=== PATIENT | male | born 1955 | race Caucasian/White ===

== ENCOUNTER 2021-09-11 04:09 | Inpatient (IN) | payer MEDICARE, MEDICAID ==
[~2021-09-11] VITALS: Ht 152.4 cm; Wt 87.0 kg
[~2021-09-11 04:09] MED LIST: ALBU2.5V12 NEB; ASCO-134 PO; BUDE0.5A11 NEB; CALC500T11 PO; CHOL100017 PO; DOCU-361 PO; FERR325T32 PO; FLUT16SP26 NAS; FOLI0.4T14 PO; FURO40TA4 PO; LEVO150T8 PO; LEVO750T46 PO; MONT-40 PO; MULT-227 PO; OXYB5TAB16 PO; PANT40TA54 PO; POLY17PO10 PO; ROBDML PO; SERT-434 PO; SODI1TAB2 PO
[2021-09-11 05:13] LABS: ALANINE AMINOTRANSFERASE 26 U/L (12-78); ALBUMIN/GLOBULIN RATIO 0.5 (1.1-1.5); ALKALINE PHOSPHATASE 62 IU/L (46-116); ANION GAP 5 (8-16); ASPARTATE AMINO TRANSFERASE 20 U/L (10-37); BILIRUBIN,TOTAL 0.3 MG/DL (0.1-1.0); BLOOD UREA NITROGEN 30 MG/DL (7-18); BUN/CREATININE RATIO 47.6 (5.4-32.0); CALCIUM 8.6 MG/DL (8.5-10.1); CHLORIDE 104 MMOL/L (99-107); CREATININE 0.63 MG/DL (0.60-1.10); GLUCOSE 102 MG/DL (70-104); SODIUM 139 MMOL/L (135-145); TOTAL CARBON DIOXIDE 30.1 MMOL/L (24-32); eGFR > 90 ML/MIN
[2021-09-11 05:17] LABS: POTASSIUM 4.6 MMOL/L (3.5-5.1)
[2021-09-11 05:39] LABS: BASOPHILS # (AUTO) 0.1 X10'3 (0-0.2); BASOPHILS % (AUTO) 1.1 % (0-1); EOSINOPHILS # (AUTO) 0.4 X10'3 (0-0.9); EOSINOPHILS % (AUTO) 3.4 % (0-6); HEMATOCRIT 43.5 % (42.0-52.0); LYMPHOCYTES # (AUTO) 2.2 X10'3 (1.1-4.8); LYMPHOCYTES % (AUTO) 19.1 % (21-51); MEAN CORPUSCULAR HEMOGLOBIN 31.3 PG (27.0-31.0); MEAN CORPUSCULAR HGB CONC 32.2 g/dL (33.0-36.5); MEAN CORPUSCULAR VOLUME 97.1 FL (78-98); MEAN PLATELET VOLUME 6.5 FL (7.4-10.4); MONOCYTES # (AUTO) 0.9 X10'3 (0-0.9); MONOCYTES % (AUTO) 7.9 % (2-12); NEUTROPHILS # (AUTO) 7.9 X10'3 (1.8-7.7); NEUTROPHILS % (AUTO) 68.5 % (42-75); PLATELET COUNT 421 X10'3 (140-440); RED BLOOD COUNT 4.48 X10'6 (4.70-6.10); RED CELL DISTRIBUTION WIDTH 16.6 % (11.5-14.5); WHITE BLOOD COUNT 11.6 X10'3 (4.5-11.0)
[2021-09-11 06:18] LABS: NUCLEATED RED BLOOD CELLS 2 /100WBC (0-0); TOTAL CELLS COUNTED 100
[2021-09-11 06:19] LABS: ANISOCYTOSIS 1+; HYPERSEGMENTED NEUTROPHILS 1+; PLATELET ESTIMATE NORMAL; POLYCHROMASIA FEW
[2021-09-11] MEDS ORDERED: vancomycin/NS 1 GM ADD-VANTAGE 250 ML IV ONE ×2 (06:20→08:15)
[2021-09-11] MEDS ORDERED: cefepime 1GM in D5W 50mL 100 ML IV ONE (06:22)
[2021-09-11] MEDS ORDERED: LEVO750T46 PO (06:37)
[2021-09-11] MEDS ORDERED: magnesium 2GM in 50ml NS 50 ML IV PRN (07:35)
[2021-09-11] MEDS: normal saline 1000ml 1,000 ML IV SCH (07:35)
[2021-09-11] MEDS ORDERED: magnesium Cl slow-release 64mg tablet PO PRN (07:35)
[2021-09-11] MEDS ORDERED: ipratropium/albuterol 3ml nebule NEB PRN ×2 (07:35)
[2021-09-11] MEDS ORDERED: acetaminophen 325mg tablet PO PRN (07:35)
[2021-09-11] MEDS ORDERED: magnesium 4gm in 100ml NS 100 ML IV PRN (07:35)
[2021-09-11] MEDS ORDERED: potassium Cl 20 mEq SR tablet PO PRN ×2 (07:35)
[2021-09-11] MEDS ORDERED: potassium CL 10mEq/100ml bag 100 ML IV PRN (07:35)
[2021-09-11] MEDS: levoFLOXACIN-Levaquin 500mg/D5 100 ML IV SCH (08:00)
[2021-09-11] MEDS: K and/or MAG REPLACEMENT MC SCH ×2 (08:00→20:00)
[2021-09-11 09:22] LABS: MAGNESIUM 2.1 MG/DL (1.5-2.4)
--- NOTE | 2021-09-11 10:46 | NUR ---
[place] [phone] Admin (Ella) [phone] need to be notified when patient assigned to admit room
[2021-09-11 12:59] LABS: MAGNESIUM 1.9 MG/DL (1.5-2.4); POTASSIUM 4.2 MMOL/L (3.5-5.1)
[2021-09-11] MEDS: vancomycin/NS 1 GM ADD-VANTAGE 250 ML IV SCH (21:22)
[2021-09-11] MEDS: lactobacillus rhamnosus 10,000 MMU CELLS/CAPSULE PO SCH (21:27)
[2021-09-12 07:05] VITALS: BP 116/47
[2021-09-12] MEDS: K and/or MAG REPLACEMENT MC SCH ×2 (08:00→20:00)
[2021-09-12 08:01] LABS: BASOPHILS # (AUTO) 0.1 X10'3 (0-0.2); BASOPHILS % (AUTO) 1.1 % (0-1); EOSINOPHILS # (AUTO) 0.3 X10'3 (0-0.9); HEMATOCRIT 42.2 % (42.0-52.0); HEMOGLOBIN 13.9 g/dl (14.0-17.9); LYMPHOCYTES # (AUTO) 1.7 X10'3 (1.1-4.8); LYMPHOCYTES % (AUTO) 14.8 % (21-51); MEAN CORPUSCULAR HEMOGLOBIN 32.2 PG (27.0-31.0); MEAN CORPUSCULAR HGB CONC 32.9 g/dL (33.0-36.5); MEAN PLATELET VOLUME 6.4 FL (7.4-10.4); MONOCYTES # (AUTO) 0.6 X10'3 (0-0.9); MONOCYTES % (AUTO) 5.4 % (2-12); NEUTROPHILS # (AUTO) 8.7 X10'3 (1.8-7.7); NEUTROPHILS % (AUTO) 75.7 % (42-75); PLATELET COUNT 381 X10'3 (140-440); RED BLOOD COUNT 4.31 X10'6 (4.70-6.10); RED CELL DISTRIBUTION WIDTH 16.5 % (11.5-14.5); WHITE BLOOD COUNT 11.5 X10'3 (4.5-11.0)
[2021-09-12 08:06] LABS: ANION GAP 4 (8-16); BLOOD UREA NITROGEN 29 MG/DL (7-18); CALCIUM 8.7 MG/DL (8.5-10.1); CHLORIDE 106 MMOL/L (99-107); CREATININE 0.58 MG/DL (0.60-1.10); GLUCOSE 100 MG/DL (70-104); MAGNESIUM 2.2 MG/DL (1.5-2.4); POTASSIUM 4.8 MMOL/L (3.5-5.1); SODIUM 140 MMOL/L (135-145); TOTAL CARBON DIOXIDE 30.3 MMOL/L (24-32); eGFR > 90 ML/MIN
[2021-09-12] MEDS: levoFLOXACIN-Levaquin 500mg/D5 100 ML IV SCH (09:38)
[2021-09-12] MEDS: lactobacillus rhamnosus 10,000 MMU CELLS/CAPSULE PO SCH ×2 (09:39→20:35)
[2021-09-12] MEDS: polyethylene glycol 3350 17gm powd pack PO SCH (09:40)
[2021-09-12] MEDS: normal saline 1000ml 1,000 ML IV SCH (09:40)
[2021-09-12] MEDS ORDERED: budesonide 0.5mg/2ml UD nebule IH PRN (09:40)
[2021-09-12] MEDS: pantoprazole 40mg Tablet.DR PO SCH (09:40)
[2021-09-12] MEDS: vancomycin/NS 1 GM ADD-VANTAGE 250 ML IV SCH (13:31)
[2021-09-12] MEDS: sodium chloride 1gm tablet PO SCH ×2 (13:33→20:10)
[2021-09-12 15:00] VITALS: BP 111/56
[2021-09-12 18:00] VITALS: BP 116/68
--- NOTE | 2021-09-12 18:15 | NUR ---
Patient in room PCU 3016. I have received report from BEN Tovar, and had the opportunity to ask questions and assume patient care.Pt. had 8am dose for Vanco at 1:31pm, will inform Pharmacy, about level due at 1930, and next dose of Vanco scheduled for 1999.
--- NOTE | 2021-09-12 18:45 | NUR ---
Problems reprioritized. Patient report given, questions answered & plan of care reviewed with BEN Amezcua.
--- NOTE | 2021-09-12 19:12 | NUR ---
[place] [address], last Vanco dose given at 1.30p, Donell in pharmacy informed, will reschedule next dose for 013, and re order level for another time.
[2021-09-12] MEDS ORDERED: VANCOMYCIN LEVEL IV ONE (19:30)
[2021-09-12] MEDS: ferrous sulfate 325mg tablet PO SCH (20:10)
[2021-09-12] MEDS: docusate sod 250mg capsule PO SCH (20:10)
[2021-09-12] MEDS: cholecalciferol (vitamin D3) 1,000 unit (25mcg) tablet PO SCH (20:10)
[2021-09-12] MEDS: calcium carbonate 500mg tablet PO SCH (20:10)
[2021-09-12] MEDS: ascorbic acid 500mg tablet PO SCH (20:10)
[2021-09-12] MEDS: oxybutynin 5mg tablet PO SCH (20:35)
[2021-09-12] MEDS: fluticasone nasal spray 16GM bottle NS SCH (20:36)
[2021-09-12 22:00] VITALS: BP 114/68
[2021-09-13 02:00] VITALS: BP 123/56
[2021-09-13] MEDS: vancomycin/NS 1 GM ADD-VANTAGE 250 ML IV SCH ×2 (02:20→13:15)
--- NOTE | 2021-09-13 03:33 | NUR ---
PAGER ID: [phone] MESSAGE: re-Room [id number]-Daiana Gonzalez Pt requesting Cough medicine.
--- NOTE | 2021-09-13 06:28 | NUR ---
Patient in room PCU 3016. I have received report from BEN Amezcua and had the opportunity to ask questions and assume patient care.
--- NOTE | 2021-09-13 06:34 | NUR ---
Problems reprioritized. Patient report given, questions answered & plan of care reviewed with BEN Vega. Pt for IR procedure today.
[2021-09-13 06:57] VITALS: BP 103/57
[2021-09-13 07:34] LABS: ANION GAP 6 (8-16); BLOOD UREA NITROGEN 27 MG/DL (7-18); BUN/CREATININE RATIO 55.1 (5.4-32.0); CALCIUM 8.5 MG/DL (8.5-10.1); CHLORIDE 106 MMOL/L (99-107); CREATININE 0.49 MG/DL (0.60-1.10); GLUCOSE 99 MG/DL (70-104); MAGNESIUM 2.2 MG/DL (1.5-2.4); POTASSIUM 4.4 MMOL/L (3.5-5.1); SODIUM 140 MMOL/L (135-145); TOTAL CARBON DIOXIDE 28.1 MMOL/L (24-32); eGFR > 90 ML/MIN
[2021-09-13] MEDS: polyethylene glycol 3350 17gm powd pack PO SCH (07:47)
[2021-09-13] MEDS: levoFLOXACIN-Levaquin 500mg/D5 100 ML IV SCH (07:47)
[2021-09-13] MEDS: oxybutynin 5mg tablet PO SCH ×2 (07:48→19:37)
[2021-09-13] MEDS: ferrous sulfate 325mg tablet PO SCH ×2 (07:48→19:37)
[2021-09-13] MEDS: ascorbic acid 500mg tablet PO SCH ×2 (07:48→19:37)
[2021-09-13] MEDS: calcium carbonate 500mg tablet PO SCH ×2 (07:48→19:37)
[2021-09-13] MEDS: docusate sod 250mg capsule PO SCH ×2 (07:48→19:37)
[2021-09-13] MEDS: lactobacillus rhamnosus 10,000 MMU CELLS/CAPSULE PO SCH ×2 (07:48→19:36)
[2021-09-13] MEDS: sertraline 50mg tablet PO SCH (07:48)
[2021-09-13] MEDS: multivitamins, therapeutics tablet PO SCH (07:48)
[2021-09-13] MEDS: folic acid 1mg tablet PO SCH (07:48)
[2021-09-13] MEDS: montelukast 10mg tablet PO SCH (07:48)
[2021-09-13] MEDS: sodium chloride 1gm tablet PO SCH ×3 (07:48→20:47)
[2021-09-13] MEDS: pantoprazole 40mg Tablet.DR PO SCH (07:48)
[2021-09-13] MEDS: levoTHYROXINE 75mcg tablet PO SCH (07:48)
[2021-09-13] MEDS: cholecalciferol (vitamin D3) 1,000 unit (25mcg) tablet PO SCH ×2 (07:48→19:37)
[2021-09-13] MEDS: fluticasone nasal spray 16GM bottle NS SCH ×2 (07:49→19:47)
[2021-09-13] MEDS: K and/or MAG REPLACEMENT MC SCH ×2 (08:00→20:00)
[2021-09-13] MEDS ORDERED: folic acid 0.4mg tablet PO SCH (08:00)
--- NOTE | 2021-09-13 10:52 | NUR ---
Angio states patient does not have enough fluids for thoracentesis.
[2021-09-13 11:26] VITALS: BP 124/85
[2021-09-13] MEDS ORDERED: VANCOMYCIN LEVEL IV ONE (13:00)
[2021-09-13 13:28] LABS: BASOPHILS # (AUTO) 0.1 X10'3 (0-0.2); BASOPHILS % (AUTO) 0.7 % (0-1); EOSINOPHILS # (AUTO) 0.3 X10'3 (0-0.9); EOSINOPHILS % (AUTO) 1.7 % (0-6); HEMATOCRIT 42.1 % (42.0-52.0); LYMPHOCYTES # (AUTO) 1.2 X10'3 (1.1-4.8); LYMPHOCYTES % (AUTO) 8.1 % (21-51); MEAN CORPUSCULAR HGB CONC 33.1 g/dL (33.0-36.5); MEAN CORPUSCULAR VOLUME 96.5 FL (78-98); MEAN PLATELET VOLUME 6.3 FL (7.4-10.4); MONOCYTES # (AUTO) 0.6 X10'3 (0-0.9); MONOCYTES % (AUTO) 3.9 % (2-12); NEUTROPHILS # (AUTO) 13.1 X10'3 (1.8-7.7); NEUTROPHILS % (AUTO) 85.6 % (42-75); PLATELET COUNT 417 X10'3 (140-440); RED BLOOD COUNT 4.37 X10'6 (4.70-6.10); RED CELL DISTRIBUTION WIDTH 16.5 % (11.5-14.5); WHITE BLOOD COUNT 15.3 X10'3 (4.5-11.0)
[2021-09-13 15:40] VITALS: BP 108/60
--- NOTE | 2021-09-13 15:49 | NUR ---
PAGER ID: [phone] MESSAGE: [id number]- Han Gonzalez- pt IV infiltrated while 1300 dose of vanco was infusing. Pt received approx. half of bag. Attempted x2 IV start but unable to, pt very edematous. No PICC RN today to assist. Thank you- Silvia [phone]
--- NOTE | 2021-09-13 15:58 | NUR ---
Attempted to get assistance in starting new IV for patient however PICC RN not available today. Called down to ER to ask for assistance. [facility] stated "they've been swamped but will try to have someone assist."
--- NOTE | 2021-09-13 17:16 | NUR ---
Pt. in recliner reading magazines and wanting to stay in recliner for dinner.
[2021-09-13 18:00] VITALS: BP 134/79
--- NOTE | 2021-09-13 18:23 | NUR ---
Problems reprioritized. Patient report given, questions answered & plan of care reviewed with BEN Darnell.
--- NOTE | 2021-09-13 19:00 | NUR ---
Pt sitting in chair awake alert and oriented transferred to bed with total assistance. PM care done , wick in place for voiding. positive bowel movement noted;skin care done.
[2021-09-13] MEDS: furosemide 40mg/4ml inj IV SCH (19:37)
[2021-09-13 22:00] VITALS: BP 125/54
[2021-09-14] MEDS: vancomycin/NS 1 GM ADD-VANTAGE 250 ML IV SCH ×2 (01:08→12:46)
[2021-09-14 02:00] VITALS: BP 133/69
[2021-09-14 06:00] VITALS: BP 135/68
[2021-09-14 07:23] LABS: BASOPHILS # (AUTO) 0.1 X10'3 (0-0.2); BASOPHILS % (AUTO) 0.5 % (0-1); EOSINOPHILS # (AUTO) 0.3 X10'3 (0-0.9); EOSINOPHILS % (AUTO) 2.9 % (0-6); LYMPHOCYTES # (AUTO) 1.4 X10'3 (1.1-4.8); LYMPHOCYTES % (AUTO) 11.5 % (21-51); MEAN CORPUSCULAR HEMOGLOBIN 31.7 PG (27.0-31.0); MEAN CORPUSCULAR HGB CONC 32.4 g/dL (33.0-36.5); MEAN CORPUSCULAR VOLUME 97.7 FL (78-98); MEAN PLATELET VOLUME 6.6 FL (7.4-10.4); MONOCYTES # (AUTO) 0.8 X10'3 (0-0.9); MONOCYTES % (AUTO) 6.3 % (2-12); NEUTROPHILS # (AUTO) 9.4 X10'3 (1.8-7.7); NEUTROPHILS % (AUTO) 78.8 % (42-75); PLATELET COUNT 427 X10'3 (140-440); RED BLOOD COUNT 3.79 X10'6 (4.70-6.10); RED CELL DISTRIBUTION WIDTH 16.7 % (11.5-14.5); WHITE BLOOD COUNT 11.9 X10'3 (4.5-11.0)
[2021-09-14 07:30] LABS: ALBUMIN 1.8 G/DL (3.4-5.0); ANION GAP 6 (8-16); BLOOD UREA NITROGEN 27 MG/DL (7-18); CALCIUM 8.2 MG/DL (8.5-10.1); CHLORIDE 106 MMOL/L (99-107); CREATININE 0.73 MG/DL (0.60-1.10); GLUCOSE 91 MG/DL (70-104); MAGNESIUM 2.2 MG/DL (1.5-2.4); POTASSIUM 4.6 MMOL/L (3.5-5.1); SODIUM 141 MMOL/L (135-145); TOTAL CARBON DIOXIDE 28.8 MMOL/L (24-32); eGFR > 90 ML/MIN
[2021-09-14] MEDS: K and/or MAG REPLACEMENT MC SCH ×2 (08:00→19:27)
[2021-09-14] MEDS: polyethylene glycol 3350 17gm powd pack PO SCH (08:02)
[2021-09-14] MEDS: levoFLOXACIN-Levaquin 500mg/D5 100 ML IV SCH (08:02)
[2021-09-14] MEDS: levoTHYROXINE 75mcg tablet PO SCH (08:03)
[2021-09-14] MEDS: cholecalciferol (vitamin D3) 1,000 unit (25mcg) tablet PO SCH ×2 (08:03→20:55)
[2021-09-14] MEDS: calcium carbonate 500mg tablet PO SCH ×2 (08:03→20:49)
[2021-09-14] MEDS: lactobacillus rhamnosus 10,000 MMU CELLS/CAPSULE PO SCH ×2 (08:03→20:49)
[2021-09-14] MEDS: multivitamins, therapeutics tablet PO SCH (08:03)
[2021-09-14] MEDS: sodium chloride 1gm tablet PO SCH ×3 (08:03→20:49)
[2021-09-14] MEDS: docusate sod 250mg capsule PO SCH ×2 (08:04→20:49)
[2021-09-14] MEDS: ascorbic acid 500mg tablet PO SCH ×2 (08:04→20:49)
[2021-09-14] MEDS: folic acid 1mg tablet PO SCH (08:04)
[2021-09-14] MEDS: sertraline 50mg tablet PO SCH (08:04)
[2021-09-14] MEDS: montelukast 10mg tablet PO SCH (08:04)
[2021-09-14] MEDS: pantoprazole 40mg Tablet.DR PO SCH (08:04)
[2021-09-14] MEDS: furosemide 40mg/4ml inj IV SCH ×2 (08:05→20:49)
[2021-09-14] MEDS: oxybutynin 5mg tablet PO SCH ×2 (08:05→20:49)
[2021-09-14] MEDS: ferrous sulfate 325mg tablet PO SCH ×2 (08:05→20:49)
[2021-09-14 11:00] VITALS: BP 106/69
[2021-09-14 15:00] VITALS: BP 110/69
[2021-09-14] MEDS ORDERED: albumin (human) 25% 100 ML IV solution IV ONE (15:25)
[2021-09-14 18:00] VITALS: BP 107/63
[2021-09-14] MEDS: fluticasone nasal spray 16GM bottle NS SCH (20:52)
[2021-09-14 22:00] VITALS: BP 121/71
[2021-09-15] MEDS: vancomycin/NS 1 GM ADD-VANTAGE 250 ML IV SCH ×2 (01:46→13:30)
[2021-09-15 02:00] VITALS: BP 103/60
[2021-09-15 06:00] VITALS: BP 114/53
[2021-09-15] MEDS: normal saline 1000ml 1,000 ML IV SCH (06:10)
[2021-09-15 06:23] LABS: BASOPHILS # (AUTO) 0.1 X10'3 (0-0.2); BASOPHILS % (AUTO) 0.5 % (0-1); EOSINOPHILS # (AUTO) 0.3 X10'3 (0-0.9); EOSINOPHILS % (AUTO) 3.3 % (0-6); HEMATOCRIT 33.3 % (42.0-52.0); HEMOGLOBIN 11.1 g/dl (14.0-17.9); LYMPHOCYTES # (AUTO) 1.3 X10'3 (1.1-4.8); LYMPHOCYTES % (AUTO) 13.6 % (21-51); MEAN CORPUSCULAR HEMOGLOBIN 32.5 PG (27.0-31.0); MEAN CORPUSCULAR HGB CONC 33.3 g/dL (33.0-36.5); MEAN CORPUSCULAR VOLUME 97.6 FL (78-98); MEAN PLATELET VOLUME 6.3 FL (7.4-10.4); MONOCYTES # (AUTO) 0.8 X10'3 (0-0.9); MONOCYTES % (AUTO) 8.4 % (2-12); NEUTROPHILS # (AUTO) 6.8 X10'3 (1.8-7.7); NEUTROPHILS % (AUTO) 74.2 % (42-75); PLATELET COUNT 372 X10'3 (140-440); RED BLOOD COUNT 3.41 X10'6 (4.70-6.10); RED CELL DISTRIBUTION WIDTH 16.1 % (11.5-14.5); WHITE BLOOD COUNT 9.2 X10'3 (4.5-11.0)
--- NOTE | 2021-09-15 07:39 | NUR ---
Initial: Pt admitted w/ PNA and pleural effusion per EMR. Currently on a Heart Healthy diet w/ mostly 100% intake of meals meeting needs. Skin is intact per [facility] assessment. LBM 09/14 receiving routine bowel care. No nutrition intervention implemented at this time, will continue to monitor. Recs: 1. Continue Heart Healthy diet as tolerated 2. Bowel care per rx 3. Weekly wts Addendum: 09/15/21 at [address] Amended: Links added.
[2021-09-15] MEDS: furosemide 40mg/4ml inj IV SCH ×2 (07:48→20:36)
[2021-09-15] MEDS: polyethylene glycol 3350 17gm powd pack PO SCH (07:48)
[2021-09-15] MEDS: docusate sod 250mg capsule PO SCH ×2 (07:49→20:36)
[2021-09-15] MEDS: calcium carbonate 500mg tablet PO SCH ×2 (07:49→20:36)
[2021-09-15] MEDS: montelukast 10mg tablet PO SCH (07:49)
[2021-09-15] MEDS: ferrous sulfate 325mg tablet PO SCH ×2 (07:49→20:36)
[2021-09-15] MEDS: cholecalciferol (vitamin D3) 1,000 unit (25mcg) tablet PO SCH ×2 (07:49→20:36)
[2021-09-15] MEDS: multivitamins, therapeutics tablet PO SCH (07:49)
[2021-09-15] MEDS: ascorbic acid 500mg tablet PO SCH ×2 (07:49→20:36)
[2021-09-15] MEDS: lactobacillus rhamnosus 10,000 MMU CELLS/CAPSULE PO SCH ×2 (07:49→20:36)
[2021-09-15] MEDS: folic acid 1mg tablet PO SCH (07:49)
[2021-09-15] MEDS: sodium chloride 1gm tablet PO SCH ×3 (07:49→21:54)
[2021-09-15] MEDS: oxybutynin 5mg tablet PO SCH ×2 (07:49→20:36)
[2021-09-15] MEDS: sertraline 50mg tablet PO SCH (07:49)
[2021-09-15] MEDS: pantoprazole 40mg Tablet.DR PO SCH (07:49)
[2021-09-15] MEDS: levoTHYROXINE 75mcg tablet PO SCH (07:50)
[2021-09-15] MEDS: K and/or MAG REPLACEMENT MC SCH ×2 (08:00→20:00)
[2021-09-15 08:59] LABS: ALBUMIN 2.6 G/DL (3.4-5.0); ANION GAP 6 (8-16); BLOOD UREA NITROGEN 27 MG/DL (7-18); BUN/CREATININE RATIO 46.6 (5.4-32.0); CALCIUM 8.9 MG/DL (8.5-10.1); CHLORIDE 101 MMOL/L (99-107); CREATININE 0.58 MG/DL (0.60-1.10); GLUCOSE 92 MG/DL (70-104); MAGNESIUM 2.1 MG/DL (1.5-2.4); POTASSIUM 4.1 MMOL/L (3.5-5.1); SODIUM 138 MMOL/L (135-145); TOTAL CARBON DIOXIDE 30.6 MMOL/L (24-32); eGFR > 90 ML/MIN
[2021-09-15 11:00] VITALS: BP 141/88
[2021-09-15] MEDS ORDERED: VANCOMYCIN LEVEL IV ONE (13:00)
--- NOTE | 2021-09-15 13:01 | NUR ---
Labs reported critical values for vanco througt 24.4. was notified. med in hold.
--- NOTE | 2021-09-15 13:06 | NUR ---
PAGED DR. GARNER REGARDING CRITICAL RESULT OF VANCO TROUGH BEING 24.4 PAGER ID: [phone] MESSAGE: [id number]. NORBERTO ORTA. CRITICAL RESULT OF VANCO TROUGH 24.4.
[2021-09-15] MEDS: levoFLOXACIN 500mg tablet PO SCH (13:58)
[2021-09-15 15:00] VITALS: BP 161/79
[2021-09-15] MEDS: albuterol 2.5 MG/3 ML nebule NEB PRN (15:45)
[2021-09-15 18:00] VITALS: BP 124/76
[2021-09-15] MEDS: fluticasone nasal spray 16GM bottle NS SCH ×2 (20:00→20:38)
[2021-09-15 22:00] VITALS: BP 111/71
[2021-09-16] MEDS: vancomycin/NS 1 GM ADD-VANTAGE 250 ML IV SCH (01:25)
[2021-09-16 02:00] VITALS: BP 104/62
[2021-09-16 06:00] VITALS: BP 131/61
[2021-09-16] MEDS: polyethylene glycol 3350 17gm powd pack PO SCH (07:43)
[2021-09-16] MEDS: sodium chloride 1gm tablet PO SCH (07:44)
[2021-09-16] MEDS: pantoprazole 40mg Tablet.DR PO SCH (07:44)
[2021-09-16] MEDS: multivitamins, therapeutics tablet PO SCH (07:44)
[2021-09-16] MEDS: ferrous sulfate 325mg tablet PO SCH (07:44)
[2021-09-16] MEDS: montelukast 10mg tablet PO SCH (07:44)
[2021-09-16] MEDS: oxybutynin 5mg tablet PO SCH (07:44)
[2021-09-16] MEDS: calcium carbonate 500mg tablet PO SCH (07:44)
[2021-09-16] MEDS: levoTHYROXINE 75mcg tablet PO SCH (07:45)
[2021-09-16] MEDS: furosemide 40mg/4ml inj IV SCH (07:45)
[2021-09-16] MEDS: ascorbic acid 500mg tablet PO SCH (07:45)
[2021-09-16] MEDS: folic acid 1mg tablet PO SCH (07:45)
[2021-09-16] MEDS: docusate sod 250mg capsule PO SCH (07:45)
[2021-09-16] MEDS: sertraline 50mg tablet PO SCH (07:45)
[2021-09-16] MEDS: lactobacillus rhamnosus 10,000 MMU CELLS/CAPSULE PO SCH (07:45)
[2021-09-16] MEDS: cholecalciferol (vitamin D3) 1,000 unit (25mcg) tablet PO SCH (07:45)
[2021-09-16] MEDS: K and/or MAG REPLACEMENT MC SCH (08:00)
[2021-09-16 08:04] LABS: ALBUMIN 2.1 G/DL (3.4-5.0); ANION GAP 6 (8-16); BLOOD UREA NITROGEN 29 MG/DL (7-18); BUN/CREATININE RATIO 60.4 (5.4-32.0); CALCIUM 8.4 MG/DL (8.5-10.1); CHLORIDE 103 MMOL/L (99-107); CREATININE 0.48 MG/DL (0.60-1.10); GLUCOSE 89 MG/DL (70-104); POTASSIUM 4.2 MMOL/L (3.5-5.1); SODIUM 138 MMOL/L (135-145); TOTAL CARBON DIOXIDE 29.1 MMOL/L (24-32); eGFR > 90 ML/MIN
[2021-09-16] MEDS: albuterol 2.5 MG/3 ML nebule NEB PRN (09:13)
[2021-09-16 11:00] VITALS: BP 119/74
[2021-09-16 11:06] LABS: BASOPHILS # (AUTO) 0.1 X10'3 (0-0.2); BASOPHILS % (AUTO) 1.1 % (0-1); EOSINOPHILS # (AUTO) 0.5 X10'3 (0-0.9); EOSINOPHILS % (AUTO) 4.8 % (0-6); HEMATOCRIT 37.7 % (42.0-52.0); LYMPHOCYTES # (AUTO) 1.6 X10'3 (1.1-4.8); LYMPHOCYTES % (AUTO) 15.7 % (21-51); MEAN CORPUSCULAR HEMOGLOBIN 32.9 PG (27.0-31.0); MEAN CORPUSCULAR HGB CONC 34.5 g/dL (33.0-36.5); MEAN CORPUSCULAR VOLUME 95.2 FL (78-98); MEAN PLATELET VOLUME 6.3 FL (7.4-10.4); MONOCYTES # (AUTO) 1.1 X10'3 (0-0.9); MONOCYTES % (AUTO) 10.6 % (2-12); NEUTROPHILS # (AUTO) 6.7 X10'3 (1.8-7.7); NEUTROPHILS % (AUTO) 67.8 % (42-75); PLATELET COUNT 503 X10'3 (140-440); RED BLOOD COUNT 3.96 X10'6 (4.70-6.10); RED CELL DISTRIBUTION WIDTH 16.1 % (11.5-14.5); WHITE BLOOD COUNT 9.9 X10'3 (4.5-11.0)
[2021-09-16] MEDS: levoFLOXACIN 500mg tablet PO SCH (11:29)
[2021-09-16 11:48] LABS: ABG BASE EXCESS 9.4 mmol/L (-2.0-2.0); ABG HCO3 34.9 mmol/L (22.0-26.0); ABG OXYGEN SATURATION 90.7 % (94-97); ABG PCO2 (T) 50.7 mmHg (35.0-48.0); ALLEN'S TEST POSITIVE; FCOHb 0.4 % (0.0-3.9); FMetHb 0.3 % (0.0-1.5); FO2Hb 90.1 % (94-97); TOTAL HEMOGLOBIN 13.5 G/dl (14.0-18.0)
[2021-09-16] MEDS ORDERED: LEVO500T90 PO (12:43)
[2021-09-16] MEDS ORDERED: POLY17PO10 PO (12:43)
[2021-09-16] MEDS ORDERED: VANCOMYCIN 750MG IV in NS 250 ML IV SCH (14:00)
[2021-09-18] MEDS ORDERED: VANCOMYCIN LEVEL IV ONE (01:30)
== END 2021-09-16 15:18 | disposition home or self-care (01) | DRG 193 ==
LOC: ER 04:10 → ED HOLD 07:58 → EDBEDREQ 09-12 04:18 → PCU 3S 09-12 07:00
PROVIDERS: ADMIT Internal Medicine; ATTEND Internal Medicine
DX: J18.9 Pneumonia, unspecified organism (principal); I50.33 Acute on chronic diastolic (congestive) heart failure; J44.0 Chronic obstructive pulmonary disease with (acute) lower respiratory infection; I50.32 Chronic diastolic (congestive) heart failure; Z20.822 Contact with and (suspected) exposure to COVID-19; E03.9 Hypothyroidism, unspecified; E66.9 Obesity, unspecified; K21.9 Gastro-esophageal reflux disease without esophagitis; R09.02 Hypoxemia; Y95 Nosocomial condition; Z88.0 Allergy status to penicillin; Z79.899 Other long term (current) drug therapy; Z68.37 Body mass index [BMI] 37.0-37.9, adult
CPT/HCPCS: 36415; 36600; 71045; 76604; 80048; 80053; 80202; 82803; 83605; 83735; 83880; 84132; 84484; 85007; 85018; 85025; 85610; 87040; 87635; 93005; 93970; 94640; 94760; 97110; 97161; 97530; 99285; C9803; G0378; J0692; J1940; J1956; J3370; J7030; P9047

== ENCOUNTER 2022-01-09 19:44 | Emergency (ER) | payer MEDICARE, MEDICAID ==
[~2022-01-09] VITALS: Ht 160 cm; Wt 220.0 kg
[~2022-01-09 19:44] MED LIST changes: -CALC500T11 PO; +LEVO500T90 PO; -LEVO750T46 PO; -ROBDML PO
[2022-01-09] MEDS ORDERED: DOXY-411 PO ×2 (22:00→22:33)
[2022-01-09] MEDS ORDERED: TETanus/Pertussis (Acell)/Diphther VAC/PF (Tdap-Adult) 0.5ml syringe IMVAC ONE (22:05)
[2022-01-09 22:59] VITALS: BP 122/71
--- NOTE | 2022-01-10 08:43 | NUR ---
Patients caregiver called and stated that antibiotic prescription escripted to pharmacy had not arrived. I asked what pharmacy it needs to be at and she stated [facility] at [phone]. Called in prescription for doxycycline 100 mg 1 cap BID x 10 days for total of 20 caps [address] chino order. Spoke with pharmacist.
== END 2022-01-09 23:02 | disposition home or self-care (01) ==
LOC: ER 19:44
DX: S51.812A Laceration without foreign body of left forearm, initial encounter (principal); M25.532 Pain in left wrist; I50.9 Heart failure, unspecified; J44.9 Chronic obstructive pulmonary disease, unspecified; K21.9 Gastro-esophageal reflux disease without esophagitis; E03.9 Hypothyroidism, unspecified; Z98.890 Other specified postprocedural states; Z88.0 Allergy status to penicillin; Z79.2 Long term (current) use of antibiotics; Z20.3 Contact with and (suspected) exposure to rabies; Z79.899 Other long term (current) drug therapy; X58.XXXA Exposure to other specified factors, initial encounter; Y93.89 Activity, other specified; Y92.89 Other specified places as the place of occurrence of the external cause; Y99.8 Other external cause status
CPT/HCPCS: 12032; 90471; 90715; 99284

== ENCOUNTER 2022-07-09 21:49 | Emergency (ER) | payer MEDICARE, MEDICAID ==
[~2022-07-09] VITALS: Ht 157.5 cm; Wt 104.5 kg
[~2022-07-09 21:49] MED LIST changes: +LEVO-65 PO; -LEVO500T90 PO
[2022-07-09] MEDS ORDERED: LIDOcaine Viscous 15ml cup MM ONE (22:15)
[2022-07-09] MEDS ORDERED: mag hydrox/Alum hydrox/simeth 30ml oral suspension PO ONE (22:15)
[2022-07-09 22:46] LABS: BASOPHILS # (AUTO) 0.1 X10'3 (0-0.2); BASOPHILS % (AUTO) 0.7 % (0-1); EOSINOPHILS # (AUTO) 0.8 X10'3 (0-0.9); EOSINOPHILS % (AUTO) 7.1 % (0-6); HEMATOCRIT 42.7 % (42.0-52.0); HEMOGLOBIN 13.8 g/dl (14.0-17.9); LYMPHOCYTES # (AUTO) 2.1 X10'3 (1.1-4.8); LYMPHOCYTES % (AUTO) 19.9 % (21-51); MEAN CORPUSCULAR HEMOGLOBIN 31.5 PG (27.0-31.0); MEAN CORPUSCULAR HGB CONC 32.4 g/dL (33.0-36.5); MEAN CORPUSCULAR VOLUME 97.2 FL (78-98); MEAN PLATELET VOLUME 7.5 FL (7.4-10.4); MONOCYTES % (AUTO) 9.5 % (2-12); NEUTROPHILS # (AUTO) 6.7 X10'3 (1.8-7.7); NEUTROPHILS % (AUTO) 62.8 % (42-75); PLATELET COUNT 277 X10'3 (140-440); RED BLOOD COUNT 4.39 X10'6 (4.70-6.10); RED CELL DISTRIBUTION WIDTH 15.7 % (11.5-14.5); WHITE BLOOD COUNT 10.7 X10'3 (4.5-11.0)
[2022-07-09 22:54] LABS: ALANINE AMINOTRANSFERASE 32 U/L (12-78); ALBUMIN 2.7 G/DL (3.4-5.0); ALBUMIN/GLOBULIN RATIO 0.5 (1.1-1.5); ALKALINE PHOSPHATASE 90 IU/L (46-116); ANION GAP 6 (8-16); ASPARTATE AMINO TRANSFERASE 17 U/L (10-37); BILIRUBIN,TOTAL 0.2 MG/DL (0.1-1.0); BLOOD UREA NITROGEN 28 MG/DL (7-18); BUN/CREATININE RATIO 29.2 (5.4-32.0); CALCIUM 8.9 MG/DL (8.5-10.1); CHLORIDE 111 MMOL/L (99-107); CREATININE 0.96 MG/DL (0.60-1.10); GLUCOSE 112 MG/DL (70-104); POTASSIUM 3.7 MMOL/L (3.5-5.1); SODIUM 153 MMOL/L (135-145); TOTAL CARBON DIOXIDE 35.9 MMOL/L (24-32); TOTAL PROTEIN 7.7 G/DL (6.4-8.2); eGFR 79 ML/MIN
[2022-07-09 22:56] VITALS: BP 141/77
[2022-07-09 23:02] LABS: MAGNESIUM 2.4 MG/DL (1.5-2.4)
== END 2022-07-10 00:57 | disposition home or self-care (01) ==
LOC: ER 21:49
DX: R07.89 Other chest pain (principal); I50.9 Heart failure, unspecified; J44.9 Chronic obstructive pulmonary disease, unspecified; K21.9 Gastro-esophageal reflux disease without esophagitis; E03.9 Hypothyroidism, unspecified; Z88.0 Allergy status to penicillin
CPT/HCPCS: 36415; 71045; 80053; 83735; 83880; 84484; 85025; 93005; 99285

== ENCOUNTER 2022-08-15 11:34 | Emergency (ER) | payer MEDICARE, MEDICAID ==
[~2022-08-15] VITALS: Ht 208.3 cm; Wt 104.5 kg
[2022-08-15] MEDS ORDERED: ipratropium/albuterol 3ml nebule NEB ONE (11:55)
[2022-08-15] MEDS ORDERED: methylPREDNISolone sod succ 125mg/2ml vial IV ONE (11:55)
[2022-08-15 12:06] LABS: BASOPHILS % (AUTO) 0.4 % (0-1); EOSINOPHILS # (AUTO) 0.7 X10'3 (0-0.9); EOSINOPHILS % (AUTO) 5.9 % (0-6); HEMATOCRIT 42.4 % (42.0-52.0); HEMOGLOBIN 13.8 g/dl (14.0-17.9); LYMPHOCYTES # (AUTO) 2.1 X10'3 (1.1-4.8); LYMPHOCYTES % (AUTO) 17.8 % (21-51); MEAN CORPUSCULAR HEMOGLOBIN 31.8 PG (27.0-31.0); MEAN CORPUSCULAR HGB CONC 32.5 g/dL (33.0-36.5); MEAN CORPUSCULAR VOLUME 97.8 FL (78-98); MEAN PLATELET VOLUME 6.7 FL (7.4-10.4); MONOCYTES % (AUTO) 8.5 % (2-12); NEUTROPHILS # (AUTO) 7.9 X10'3 (1.8-7.7); NEUTROPHILS % (AUTO) 67.4 % (42-75); PLATELET COUNT 264 X10'3 (140-440); RED BLOOD COUNT 4.34 X10'6 (4.70-6.10); RED CELL DISTRIBUTION WIDTH 15.5 % (11.5-14.5); WHITE BLOOD COUNT 11.7 X10'3 (4.5-11.0)
[2022-08-15 14:01] LABS: ALANINE AMINOTRANSFERASE 15 U/L (12-78); ALBUMIN 2.6 G/DL (3.4-5.0); ALBUMIN/GLOBULIN RATIO 0.6 (1.1-1.5); ALKALINE PHOSPHATASE 90 IU/L (46-116); ANION GAP 3 (8-16); ASPARTATE AMINO TRANSFERASE 14 U/L (10-37); BILIRUBIN,TOTAL 0.2 MG/DL (0.1-1.0); BLOOD UREA NITROGEN 12 MG/DL (7-18); BUN/CREATININE RATIO 21.1 (5.4-32.0); CALCIUM 8.6 MG/DL (8.5-10.1); CHLORIDE 100 MMOL/L (99-107); CREATININE 0.57 MG/DL (0.60-1.10); GLUCOSE 125 MG/DL (70-104); POTASSIUM 3.4 MMOL/L (3.5-5.1); SODIUM 140 MMOL/L (135-145); TOTAL CARBON DIOXIDE 36.7 MMOL/L (24-32); TOTAL PROTEIN 7.2 G/DL (6.4-8.2); eGFR > 90 ML/MIN
[2022-08-15] MEDS ORDERED: ALBU6.7H14 INH ×3 (14:29→14:39)
[2022-08-15] MEDS ORDERED: BUDE180A INH ×3 (14:29→14:39)
[2022-08-15] MEDS ORDERED: ALB0.5UD IH (14:29)
[2022-08-15 14:30] VITALS: BP 121/74
[2022-08-15] MEDS ORDERED: PRED20TA PO ×3 (14:30→14:39)
== END 2022-08-15 15:42 ==
LOC: ER 11:34
DX: J45.901 Unspecified asthma with (acute) exacerbation (principal); Z20.822 Contact with and (suspected) exposure to COVID-19; I50.9 Heart failure, unspecified; J44.9 Chronic obstructive pulmonary disease, unspecified; K21.9 Gastro-esophageal reflux disease without esophagitis; E03.9 Hypothyroidism, unspecified; Z88.0 Allergy status to penicillin
CPT/HCPCS: 36415; 71046; 80053; 83880; 85025; 87635; 93005; 94640; 96374; 99285; C9803; J2930